=== PATIENT | male | born 1980 | race Caucasian/White ===

== ENCOUNTER → 2019-04-29 | Outpatient (CLI) | payer OTHER ==
--- NOTE | 2019-04-29 12:22 | PCVCIMAG ---
APPROVED REPORT Study performed: 04/29/2019 10:39:11 EXAM: Comprehensive 2D, Doppler, and color-flow Echocardiogram Patient Location: Echo lab Room #: 2Status: routine BSA: 1.74 HR: 43 bpmBP: 102/70 mmHg Rhythm: NSR,bradycardia Other Information Study Quality: Good Indications Bradycardia Athletic heart 2D Dimensions IVSd: 8.08 (7-11mm)LVOT Diam: 20.56 (18-24mm) LVDd: 50.87 mm PWd: 7.22 (7-11mm)Ascending Ao: 25.41 (22-36mm) LVDs: 36.34 (25-40mm) Left Atrium: 36.80 (27-40mm) Aortic Root: 24.09 mm LV Single Plane 4CH: 47.06 % LV Single Plane 2CH: 56.09 % Biplane EF: 51.9 % Volumes Left Atrial Volume (Systole) Single Plane 4CH: 71.15 mLSingle Plane 2CH: 65.78 mL Biplane LA Volume: 71.00 mLLA ESV Index: 40.00 mL/m2 Aortic Valve AoV Peak Antwan.: 1.04 m/s AO Peak Gr.: 4.35 mmHgLVOT Max P.80 mmHg LVOT Max V: 0.83 m/s LEAH Vmax: 2.63 cm2 Mitral Valve E/A Ratio: 3.0 MV Decel. Time: 217.06 ms MV E Max Antwan.: 0.80 m/s MV A Antwan.: 0.27 m/s IVRT: 76.12 ms TDI E/Lateral E': 5.00E/Medial E': 6.15 Medial E' Antwan.: 0.13 m/s Lateral E' Antwan.: 0.16 m/s Pulmonary Valve PV Peak Antwan.: 0.72 m/sPV Peak Gr.: 2.09 mmHg Pulmonary Vein P Vein S: 0.43 m/sP Vein A: 0.18 m/s P Vein D: 0.49 m/sP Vein A Dur.: 96.9 msec P Vein S/D Ratio: 0.88 Tricuspid Valve TR Peak Antwan.: 2.12 m/s TR Peak Gr.: 18.04 mmHg TV Vmax: 0.70 m/sPA Pressure: 25.00 mmHg Left Ventricle The left ventricle is normal size. There is normal LV segmental wall motion. There is normal left ventricular wall thickness. Left ventricular systolic function is normal. The left ventricular ejection fraction is within the normal range. LVEF is 50-55%. The left ventricular diastolic function is normal. Right Ventricle The right ventricle is normal size. The right ventricular systolic function is normal. Atria Left atrium is mildly dilated. Right atrium is mildly dilated. Aortic Valve Aortic valve is trileaflet. The aortic valve is normal in structure. No aortic regurgitation is present. There is no aortic valvular stenosis. Mitral Valve The mitral valve is normal in structure. Trace mitral regurgitation. No evidence of mitral valve stenosis. Tricuspid Valve The tricuspid valve is normal in structure. Trace to mild tricuspid regurgitation with a PA pressure of 25 mmHg. Pulmonic Valve The pulmonary valve is normal in structure. There is no pulmonic valvular regurgitation. Great Vessels The aortic root is normal in size. The ascending aorta is normal in size. Aortic arch is normal in caliber. IVC is mildly dilated and collapses >50% with inspiration. Pericardium There is no pericardial effusion. There is no pleural effusion. <Conclusion> The left ventricle is normal size. There is normal left ventricular wall thickness. Left ventricular systolic function is normal. The left ventricular diastolic function is normal. The right ventricle is normal size. Left atrium is mildly dilated. The aortic valve is normal in structure. Trace mitral regurgitation. Trace to mild tricuspid regurgitation with a PA pressure of 25 mmHg.
--- NOTE | 2019-04-29 12:24 | PCVCIMAG ---
APPROVED REPORT Patient Location: Echo lab- [facility] TEST Room #: 2 Stress Nurse: Maria Del Carmen Toro RN INDICATIONS: chest pain,lightheaded,dizziness The patient exercised according to the [facility] protocol for 21:27 mins; achieving a work level of 23.8 METS. The resting heart rate of 49 bpm [place] to a maximum heart rate of 171 bpm. This value represents 93% of the maximal, age-predicted heart rate. The resting blood pressure of 102/70 mmHg, [place] to a maximum blood pressure of 152/78 mmHg. The exercise test was stopped due to fatigue. Conclusion 1. Clinical response, nonischemic. 2. Stress ECG response, nonischemic. 3. Exercise capacity, superior.
== END | disposition home or self-care (01) ==
LOC: PCVCIMAG 10:18
PROVIDERS: ATTEND Internal Medicine Cardiovascular Disease
DX: I07.1 Rheumatic tricuspid insufficiency (principal)
CPT/HCPCS: 93017; 93306